=== PATIENT | male | born 1985 | race Caucasian/White ===

== ENCOUNTER 2025-09-05 12:00 | Emergency (ER) | payer BC, SELFPAY ==
--- OUTSIDE RECORDS SUMMARY | 2025-09-05 12:01 | XMS_ITS | Clinical Summary ---
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 [facility] Allergies No known active allergies Medications MedicationSigDispense QuantityRefillsLast FilledStart DateEnd DateStatus fluticasone propionate (FLONASE) 50 MCG/ACT nasal solution Indications:Allergic rhinitis, unspecified seasonality, unspecified triggerPlace 2 Sprays into both nostrils daily. 16 g ctive loratadine (CLARITIN) 10 MG tablet Indications:Allergic rhinitis, unspecified seasonality, unspecified triggerTake 1 Tablet (10 mg) by mouth daily. 90 Tablet ctive ibuprofen (MOTRIN) 400 MG tablet Take 1 Tablet (400 mg) by mouth three times a day. 100 Tablet 11002/10/2022 3:01 PM CDT02/10/2022ctive polyethylene glycol 3350 (GLYCOLAX) 17 GM/SCOOP powder Fill to top of indicated section in lid (17 grams), mix in 4 to 8 ounces of a beverage and drink once daily as directed. 238 g 02/10/2022 3:01 PM CDT02/10/2022ctive Additional Information Patient not taking.Reported on 08/09/2022 gabapentin (NEURONTIN) 300 MG capsule Take 1 Capsule (300 mg) by mouth three times a day. 270 Capsule 306/20/2022Active Additional Information Patient not taking.Reported on 12/06/2022 amitriptyline (ELAVIL) 25 MG tablet Take 1 Tablet (25 mg) by mouth at bedtime as needed for Sleep. 60 Tablet 04/05/2022ctive amLODIPine (NORVASC) 10 MG tablet Indications:Hypertension, unspecified type (HRC)Take 1 Tablet (10 mg) by mouth daily. 30 Tablet ctive oxyCODONE (ROXICODONE) 5 MG immediate release tablet Indications:Lumbar radiculopathyTake 1 Tablet (5 mg) by mouth every 6 hours as needed for Pain. 24 Tablet 12/25/2022ctive Additional Information Patient not taking.Reported on 02/13/2023 ACETAMINOPHEN EXTRA STRENGTH 500 MG tablet TAKE TWO TABLETS BY MOUTH THREE TIMES DAILY. MAX ACETAMINOPHEN DOSE IS 4000MG IN 24 HOURS. 100 Tablet 12/27/2022ctive Active Problems ProblemNoted DateDiagnosed DateMechanical low back pain03/19/2023Hypertension 12/11/2022OSA (obstructive sleep apnea)10/06/2022 Overview (10/06/2022): PSG 09/04/22: AHI: 94 RDI: 95 Oxygen janet: 84%. Anastacia/ carissa. apap 6 15 Hand oidnmenahjf96/16/2022cute fdimihbkxzp85/14/2004 Immunizations ImmunizationAdministration DatesNext DueDT Ped05/18/2006DTP02/03/1985,1984 ,1984OPV, Trivalent (Orimune or tOPV)1984,1984Td (7+ yrs) 05/18/2006Tdap02/10/2022,11/21/2016 Family History RelationNameStatusCommentsBirth FatherAliveBirth MotherAlive Social History Tobacco UseTypesPacks/DayYears UsedDateSmoking Tobacco: Every DayCigarettes0.515 Smokeless Tobacco: Never Tobacco Cessation:Ready to Q uit: Not Asked; Counseling Given: Not Answered Alcohol UseStandard Drinks/FrkvOqlpubzmAwi49 (1 standard drink = 0.6 oz pure alcohol)PHQ-2AnswerDate RecordedPHQ-2 Xrfwm024Sex and Gender Information ValueDate RecordedSex Assigned at BirthNot on fileLegal UaiTmxf68/10/2012 5:13 AM CDTGender IdentityNot on fileSexual OrientationNot on file Last Filed Vital Signs Vital SignReadingTime TakenCommentsBlood Ytkrqzws487/51106 11:42 AM CDT Acfum8294/22/2023 11:42 AM SUBMkytmdepotc87.8 ??C (98.3 ??F)12/21/2022 2:02 PM CDTRespiratory Xlvm589702/10/2022 9:00 AM CDTOxygen Czawwfvuwu78%10/06/2022 12:24 PM CSTInhaled Oxygen Concentration--Vkzmdm079.2 kg (265 lb)01/09/2023 11:37 AM RVKCbeowa093.5 cm (6' 3)01/09/2023 11:37 AM CDTBody Mass Index33.12001/09/2023 11:37 AM CDT Plan of Treatment Health MaintenanceDue DateLast DoneCommentsHep C Screening (Preventive Services) 1984IPV (Polio) Vaccine (3 of 3 - 4-dose series), 1984HepB Vaccine (1)2003Pneumococcal Vaccine (1 of 2 - PCV) 2003Adult Preventive Visit/2COVID-19 Vaccine (1 - season)2025Influenza Vaccine (#1)4302Jrovyqjypns85/22/2027 2DTaP/Tdap/Td Vaccine (8 - Tdap)/, 11/21/2016, 05/18/2006, Additional history existsZoster/Shingles Vaccine (1 of 2)2034 HIV Screening (Preventive Services)Wywoelmwu26/30/2021HPV Vaccine (No Doses Required)CompletedHepA VaccineAged OutNo longer eligible based on patient's age to complete this topicHib VaccineAged OutNo longer eligible based on patient's age to complete this topicMCV4 VaccineAged OutNo longer eligible based on patient's age to complete this topicMeningococcal B VaccineAged OutNo longer eligible based on patient's age to complete this topic Medical Devices ImplantedTypeAreaManufacturerDevice IdentifierShelf Expiration DateModel / Serial / LotKit Tisseel 2ml Prima - [id number] Implanted:Qty: 1 on 02/10/2022 by Ba Zavala MD at [facility] XENOGRAFTLeft: [id number] / [id number] / [id number] Procedures Procedure NamePriorityDate/TimeAssociated DiagnosisCommentsLIPID PANEL & DIRECT LDL (IF NEEDED)Pvsitql1412/06/2021 9:03 AM CDT Well adult exam HIV 1/2 AG/AB 4TH VTQJfeleol46/30/2021 1:44 PM CDT 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 from Last 3 Months or Most Recently Relevant to Health Maintenance Results * (ABNORMAL) Lipid Panel - LDLD If Trig High (12/06/2021 9:03 AM CDT)Component ValueRef RangeTest MethodAnalysis TimePerformed AtPathologist Signature Nojybexudck766(H)0 - 199 mg/dL12/06/2021 12:23 PM [facility] Mqifmkurpmwi084(H)<=149 mg/dL12/06/2021 12:23 PM [facility]ATORYHDL Dyvnevdcppq65>=40 mg/dL12/06/2021 12:23 PM [facility]ORATORYLDL, Wvfvmymhwr346(H)<130 mg/dL12/06/2021 12:23 PM [facility]Non HDL Chol, Nylblenkuh281(H)<=159 mg/dL12/06/2021 12:23 PM [facility] Cholesterol/HDL Ratio4.503 12:23 PM [facility] LABORATORYHours Xgdnjcj4994 12:23 PM [facility] LABSpecimen (Source)Anatomical Location / LateralityCollection Method / VolumeCollection TimeReceived Time BloodVenipuncture / Safurjb3612/06/2021 9:03 AM CDT12/06/2021 9:03 AM CDT Narrative Authorizing ProviderResult TypeResult StatusJeremie ZAMORACLAB_1Final Result Performing OrganizationAddressCity/State/ZIP CodePhone Number [facility] [address] [place] [address], [place] [phone] [facility] [address] [place] [address], [facility] [phone] * HIV 1/2 Ag/Ab 4th Generation (06/16/2021 1:44 PM CDT)ComponentValueRef Range Test MethodAnalysis TimePerformed AtPathologist SignatureHIV 1/2 Antigen/Antibody (4th generation)Negative (Non Reactive)Negative (Non Reactive)06/16/2021 7:51 PM CDTMETHODIST LABORATORYComment:HIV-1 p24 Antigen and HIV-1/HIV-2 Antibody not detectedSpecimen (Source)Anatomical Location / LateralityCollection Method / VolumeCollection TimeReceived TimeBlood Venipuncture / Vfatakd7206/16/2021 1:44 PM CDT06/16/2021 1:45 PM CDT Narrative Authorizing ProviderResult TypeResult StatusAnajace Barrera MDLAB_1Final Result Performing OrganizationAddressCity/State/ZIP CodePhone Number [facility] [address] [place], [place] [address] from Last 3 Months or Most Recently Relevant to Health Maintenance Advance Directives * Full Code (Latest Code Status on File) Date ActivatedDate InactivatedComments02/10/2022 9:03 AM02/10/2022 8:58 PM Care Teams Team MemberRelationshipSpecialtyStart DateEnd Date Jeremie Anderson PA-C [address] [place] [address] PCP - GeneralPhysician Assistant12/06/21
--- OUTSIDE RECORDS SUMMARY | 2025-09-05 12:01 | XMS_ITS | Clinical Summary ---
Author Organization [facility] Address [address] [place] [address] Care Team Providers Care Bacteriology Research Assistant Name Role Phone Juliann Kulkarni NP Primary Care Provider Unavail able Allergies No known active allergies Active Problems ProblemNoted DateDiagnosed DateAcute ouuojmdeniy57/14/2004 Social History Tobacco UseTypesPacks/DayYears UsedDateSmoking Tobacco: Every DayCigarettes Tobacco Cessation:Ready to Q uit: Yes; Counseling Given: Yes Alcohol UseStandard Drinks/WeekCommentsNot Asked0 (1 standard drink = 0.6 oz pure alcohol)Sex and Gender InformationValueDate RecordedSex Assigned at Not on fileLegal RvcAzji08/23/2013 10:14 AM CDTGender IdentityNot on fileSexual OrientationNot on file Last Filed Vital Signs Vital SignReadingTime TakenCommentsBlood Xxusdcbs100/6407/09/2013 11:18 AM CDT Cojtv429807/09/2013 11:18 AM OVIYrbhtuwfbal70.6 ??C (97.8 ??F)07/09/2013 11:18 AM CDTRespiratory Rate--Oxygen Saturation--Inhaled Oxygen Concentration--Weight 100.5 kg (221 lb 9.6 oz)07/09/2013 11:18 AM CDTHeight--Body Mass Index-- Plan of Treatment Health MaintenanceDue DateLast DoneCommentsTetanus czaguul4507/03/1995Depression screening for age 12+1996HIV for age 15-6507/03/1999BMI (ht and wt on same day) for age 18+2002Hepatitis C screening for age 18-7907/03/2002Hepatitis B series for 19+ (1 of 3 - 19+ 3-dose series)2003HPV series for age 9-45 (1 - 3-dose SCDM series)2011Lipids for age 35-441COVID-19 vaccine series ( - 2024-26 season)2025Influenza Vaccine (#1)2025 Pneumococcal series for age 6-49Aged OutNo longer eligible based on patient's age to complete this topic Insurance * Guarantor: Chandler Garrett TypeRelation to PatientDate of PhoneBilling AddressPersonal/XeititRerb[address] [address] [place] [address] [place] [address] Care Teams Team MemberRelationshipSpecialtyStart DateEnd Date Juliann Kulkarni NP PCP - [facility] Svuywszh72/23/13
[2025-09-05 12:15] VITALS: BP 177/131; PULSE 99; RESP 16; TEMP 36.6; O2SAT 98; BMI 33.7
[2025-09-05 12:28] VITALS: PULSE 97; O2SAT 97
[2025-09-05 12:30] VITALS: PULSE 92; O2SAT 96
--- NOTE | 2025-09-05 12:30 | ED.GENADULT ---
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 He comes in today with a muscle strain on the lateral side of his chest on the left. He has had no bowel or bladder symptoms no fevers no chills. He states the pain is in the mid clavicular line on the left. He has had chronic back issues as well but this is appears to be more of an acute strain over the last 3-4 days. Related Data Allergies Allergy/AdvReac Type Severity Reaction Status Date / Time No Known Drug Allergies Allergy Verified 09/05/25 12:13 Review of Systems Status of ROS: Reports: 10 or more systems reviewed and unremarkable except as noted in History and below Exam Narrative: Exam Narrative: EXAM GENERAL: Patient appears comfortable and well. EYES: No scleral icterus. ENT: Tympanic membranes and oropharynx normal. THYROID: no thyroid nodules or thyromegaly. LYMPH: No supraclavicular or cervical lymphadenopathy. SKIN: Visible skin seen during exam normal or with benign process only. EXT: No dependent lower extremity pedal edema. HEART: Regular rate and rhythm with no murmurs, rubs, or gallops. LUNGS: Clear to auscultation bilaterally with no crackles or wheezes. ABD: Soft, non tender, non distended. PSYCH: Good eye contact, speech is not pressured. Musculoskeletal exam is normal. Const: Vital Signs, click to edit/add: Vital Signs - 24 hr 09/05/25 12:15 Temperature 97.9 F Pulse Rate [Pulse Oximeter] 99 Respiratory Rate 16 Blood Pressure [Ri ght Upper Arm] 177/131 H Pulse Oximetry 98 Oxygen Delivery Me thod Room Air Course Course ED Course: Patient seen and examined. Vital Signs Vital signs: Initial Vital Signs Temperature 97.9 F 09/05/25 12:15 Temperature Source Temporal Artery Scan 09/05/25 12:15 Pulse Rate 99 09/05/25 12:15 Respiratory Rate 16 09/05/25 12:15 Blood Pressure 177/131 H 09/05/25 12:15 Blood Pressure Mean 146 H 09/05/25 12:15 Blood Pressure Position Sitting 09/05/25 12:15 Pulse Oximetry 98 1220/25 12:15 Oxygen Delivery Method Room Air 09/05/25 12:15 Vital Signs Temperature 97.9 F 09/05/25 12:15 Pulse Rate 99 09/05/25 12:15 Respiratory Rate 16 09/05/25 12:15 Blood Pressure 177/131 H 09/05/25 12:15 Pulse Oximetry 98 09/05/25 12:15 Oxygen Delivery Method Room Air 09/05/25 12:15 Temperature 97.9 F 09/05/25 12:15 Pulse Rate 99 09/05/25 12:15 Respiratory Rate 16 09/05/25 12:15 Blood Pressure 177/131 H 09/05/25 12:15 Pulse Oximetry 98 09/05/25 12:15 Oxygen Delivery Method Room Air 09/05/25 12:15 Medical Decision Making MDM Narrative Medical decision making narrative: Patient is a 40-year-old comes in today with acute back pain. He has normal exam normal vital signs. I do not believe he has a kidney stone related. He will be placed on short course of prednisone as well as Vicodin on a limited course for the next several days will follow-up with me in the office next week as needed. Discharge Plan Discharge Clinical Impression: Back pain Patient Disposition: Home, Self-Care Condition: Stable Instructions: Back Pain (ED) Additional Instructions: Prednisone as directed Tylenol with codeine as directed Ice Follow-up with Dr. Castorena as needed. Activity Level: No Restrictions Discharge Diet: Regular Follow Up/Referrals: Provider,Not a Local [Primary Care Provider, Family Practice] Stand Alone Forms: Ruby Ribbonth Info Instructions
[2025-09-05 12:32] VITALS: BP 175/119; PULSE 97; O2SAT 97
== END 2025-09-05 12:49 | disposition home or self-care (01) ==
PROVIDERS: Emergency Provider Internal Medicine
DX: M54.9 Dorsalgia, unspecified (principal); G89.29 Other chronic pain
CPT/HCPCS: 99283; 99284